=== PATIENT | female | born 1975 | race Caucasian/White ===

== ENCOUNTER 2021-10-13 17:08 | Outpatient (REF) | payer OTHER, SELFPAY | END 2021-10-13 17:09 | disposition home or self-care (01) | LOC: HO.LNP 17:08 | PROVIDERS: Visit Provider Nurse Practitioner Family | DX: R82.998 Other abnormal findings in urine (principal) | CPT/HCPCS: 87086 ==

== ENCOUNTER 2023-05-23 11:39 | Outpatient (AMB) | payer OTHER, SELFPAY ==
--- NOTE | 2023-05-23 11:43 | A.OFFPC_ITS ---
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 Father No problems noted. Social History Housing: House Alcohol intake: never Patient Tobacco Use Status: Never used Tobacco e-Cigarette/Vaping Use: Never Used Second Hand Smoke Exposure: No service: No Current occupational status: employed Current occupation: nurse Cognitive needs: No Hearing needs: No Vision needs: Yes (glasses) Questionnaire PHQ-9 Over the last 2 weeks, how often have you been bothered by any of the following problems? 1. Little interest or pleasure in doing things: not at all 2. Feeling down, depressed, or hopeless: not at all 3. Trouble falling or staying asleep, or sleeping too much: not at all 4. Feeling tired or having little energy: not at all 5. Poor appetite or overeating: not at all 6. Feeling bad about yourself - or that you are a failure or have let yourself or your family down: not at all 7. Trouble concentrating on things, such as reading the newspaper or watching television: not at all 8. Moving or speaking so slowly that other people could have noticed. Or the opposite - being so fidgety or restless that you have been moving around a lot more than usual: not at all 9. Thoughts that you would be better off or of hurting yourself in some way: not at all Total score: 0 Depression Screening Interpretation: Negative Depression Screening Done: Yes 04377 - PHQ-9 Billing: Yes Source: Developed by Drs. Julien Coles, Veda Aiken, Salomón Pelaez and colleagues, with an educational sandrita from [employer]. Thrive Questionnaire Date Thrive assessed: 05/23/23 I am a: Patient What is your living situation today?: I have a steady place to live Within the past 12 months, did the food you bought not last and you didn't have the money to get more?: Never true Within the past 12 months, did you worry whether your food would run out before you got money to buy more?: Never true Do you have trouble paying for medicines?: No Do you have trouble getting transportation to medical appointments?: No Do you have trouble paying your heating and electricity bill?: No Do you have trouble taking care of your child, family member or friend?: No Do you have trouble with day-to-day activities such as bathing, preparing meals, shopping, managing finances, etc.?: No Are you currently unemployed and looking for a job?: No Are you interested in more education?: No Please select the resources that you would like help with: None Currently or been in a relationship where the following occur: no concerns reported AUDIT C Alcohol Use Questionnaire (AUDIT-C) 1. How often do you have a drink containing alcohol?: Never 3. How often do you have six or more drinks on one occasion?: Never Total Score: 0 CASSANDRA-7 AMB Questionnaire CASSANDRA-7 Date CASSANDRA - 7 assessed: 05/23/23 Feeling nervous, anxious, or on edge: 0 = Not at all Not being able to stop or control worryin = Not at all Worrying too much about different things: 0 = Not at all Trouble relaxin = Not at all Being so restless that it is hard to sit still: 0 = Not at all Becoming easily annoyed or irritable: 0 = Not at all Feeling afraid as if something awful might happen: 0 = Not at all Total CASSANDRA-7 score (0-4 normal; 5-9 mild; 10-14 moderate; 15-21 severe): 0 Source: Developed by Drs. Julien Coles, Veda Aiken, Salomón Pelaez and colleagues, with an educational sandrita from [employer]. CASSANDRA-7 Assessment Billing CASSANDRA-7 Assessment Tool: CASSANDRA-7 Assessment 76868 Review of Systems Const Denies chills, Denies headache(s) and Denies weight loss ENT Denies headache(s) Card Denies chest pain, Denies syncope, Denies irregular heart rhythm and Denies dyspnea Resp Denies chest congestion, Denies cough and Denies dyspnea GI Denies abdominal pain, Denies change in stool character, Denies nausea and Denies vomiting Musc Denies deformity and Denies joint swelling Neuro Denies syncope and Denies headache(s) Physical exam (Primary Care) Vital Signs: Last Vital Signs Pulse 68 05/23/23 11:44 BP 104/68 05/23/23 11:44 Pulse Ox 98 05/23/23 11:44 Oxygen Delivery Method Room Air 05/23/23 11:44 BMI result Body Mass Index 24.1 Tobacco/Smoking Status: Tobacco use Status Tobacco use date assessed 10/13/21 05/23/23 11:51 Patient Tobacco Use Status Never used Tobacco 05/23/23 11:51 e-Cigarette/Vaping Use Never Used 05/23/23 11:51 PHQ-9: PHQ-9 Score PHQ-9: Total score 0 05/23/23 11:51 Depression Screening Interpretation: Negative Thrive Assessment: Date of Thrive Assessment Date Thrive assessed 05/23/23 05/23/23 11:51 Currently or been in a relationship where the following occur: no concerns reported Const General: cooperative, comfortable, no acute distress and alert Neck Neck: Yes no lymphadenopathy Thyroid: Thyroid normal Resp Effort & Inspection: normal respiratory effort Auscultation: clear to auscultation bilaterally Percussion: percussion normal Cardio Jugular venous distension: no JVD Palpation: normal PMI Rate: regular rate Rhythm: regular rhythm Heart sounds: S1 normal heart sound present and S2 normal heart sound present GI Inspection: Yes normal to inspection Palpation (GI): No hepatosplenomegaly present Skin General skin exam: no rashes or lesions noted Extrem General: Yes no clubbing, cyanosis or edema Assessment and Plan Assessment & Plan (1) 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
[2023-05-23 11:44] VITALS: BP 104/68; PULSE 68; O2SAT 98; BMI 24.1
== END 2023-05-23 12:53 | disposition home or self-care (01) ==
PROVIDERS: PCP Internal Medicine; Visit Provider Internal Medicine
DX: I45.6 Pre-excitation syndrome (principal)
CPT/HCPCS: 99213

== ENCOUNTER 2023-11-14 11:35 | Outpatient (AMB) | payer BC, SELFPAY ==
--- NOTE | 2023-11-14 11:36 | A.OFFPC_ITS ---
Vital Signs 11/14/23 11:37 Height 5 ft 7 in Weight 154 lb BMI 24.1 BP 140/76 H Blood Pressure Location Lt brachial Position Sitting Pulse 100 Pulse Source Pulse Oximeter Pulse Oximetry (%) 98 Oxygen Delivery Method Room Air Intake Visit Reasons: Med Visit Allergies No Known Allergies Allergy (Verified 11/14/23 11:38) Medication List - Last Reconciled 11/14/23 by Cliff Garg MD [id number] 50-325-40 mg 2 tabs PO Q4-6H PRN zolpidem 5 mg PO BEDTIME PRN Tobacco use date assessed: 11/14/23 Dental Screening Dental Screen Date: 11/14/23 HPI Med Visit HPI Details cough for a week PFSH Medical History (Updated 12/11/21 @ 09:27 by Cliff Garg MD) WPW syndrome Surgical History History of bladder surgery History of section Family History Mother No problems noted. Father No problems noted. Social History Housing: House Alcohol intake: never Patient Tobacco Use Status: Never used Tobacco e-Cigarette/Vaping Use: Never Used Second Hand Smoke Exposure: No service: No Current occupational status: employed Current occupation: nurse Cognitive needs: No Hearing needs: No Vision needs: Yes (glasses) Questionnaire PHQ-9 Over the last 2 weeks, how often have you been bothered by any of the following problems? 1. Little interest or pleasure in doing things: not at all 2. Feeling down, depressed, or hopeless: not at all 3. Trouble falling or staying asleep, or sleeping too much: not at all 4. Feeling tired or having little energy: not at all 5. Poor appetite or overeating: not at all 6. Feeling bad about yourself - or that you are a failure or have let yourself or your family down: not at all 7. Trouble concentrating on things, such as reading the newspaper or watching television: not at all 8. Moving or speaking so slowly that other people could have noticed. Or the opposite - being so fidgety or restless that you have been moving around a lot more than usual: not at all 9. Thoughts that you would be better off or of hurting yourself in some way: not at all Total score: 0 Depression Screening Interpretation: Negative Depression Screening Done: Yes [id number] - PHQ-9 Billing: Yes Source: Developed by Drs. Julien Coles, Veda Aiken, Salomón Pelaez and colleagues, with an educational sandrita from [employer]. Thrive Questionnaire Date Thrive assessed: 11/14/23 I am a: Patient What is your living situation today?: I have a steady place to live Within the past 12 months, did the food you bought not last and you didn't have the money to get more?: Never true Within the past 12 months, did you worry whether your food would run out before you got money to buy more?: Never true Do you have trouble paying for medicines?: No Do you have trouble getting transportation to medical appointments?: No Do you have trouble paying your heating and electricity bill?: No Do you have trouble taking care of your child, family member or friend?: No Do you have trouble with day-to-day activities such as bathing, preparing meals, shopping, managing finances, etc.?: No Are you currently unemployed and looking for a job?: No Are you interested in more education?: No Currently or been in a relationship where the following occur: no concerns reported THRIVE Score: 0 AUDIT C Alcohol Use Questionnaire (AUDIT-C) 1. How often do you have a drink containing alcohol?: Never 3. How often do you have six or more drinks on one occasion?: Never Total Score: 0 CASSANDRA-7 AMB Questionnaire CASSANDRA-7 Date CASSANDRA - 7 assessed: 11/14/23 Feeling nervous, anxious, or on edge: 0 = Not at all Not being able to stop or control worryin = Not at all Worrying too much about different things: 0 = Not at all Trouble relaxin = Not at all Being so restless that it is hard to sit still: 0 = Not at all Becoming easily annoyed or irritable: 0 = Not at all Feeling afraid as if something awful might happen: 0 = Not at all Total CASSANDRA-7 score (0-4 normal; 5-9 mild; 10-14 moderate; 15-21 severe): 0 Source: Developed by Drs. Julien Coles, Veda Aiken, Salomón Pelaez and colleagues, with an educational sandrita from [employer]. Review of Systems Const Denies chills, Denies headache(s) and Denies weight loss ENT Denies headache(s) Card Denies chest pain, Denies syncope, Denies irregular heart rhythm and Denies dyspnea Resp Denies dyspnea GI Denies abdominal pain, Denies change in stool character, Denies nausea and Denies vomiting Musc Denies deformity and Denies joint swelling Neuro Denies syncope and Denies headache(s) Physical exam (Primary Care) Vital Signs: Last Vital Signs Pulse 100 11/14/23 11:37 BP 140/76 H 11/14/23 11:37 Pulse Ox 98 11/14/23 11:37 Oxygen Delivery Method Room Air 11/14/23 11:37 BMI result Body Mass Index 24.1 Tobacco/Smoking Status: Tobacco use Status Tobacco use date assessed 11/14/23 11/14/23 11:36 Patient Tobacco Use Status Never used Tobacco 11/14/23 11:36 e-Cigarette/Vaping Use Never Used 11/14/23 11:36 PHQ-9: PHQ-9 Score PHQ-9: Total score 0 11/14/23 12:44 Depression Screening Interpretation: Negative Thrive Assessment: Date of Thrive Assessment Date Thrive assessed 11/14/23 11/14/23 11:36 Currently or been in a relationship where the following occur: no concerns r eported Const General: cooperative, comfortable, no acute distress and alert Neck Neck: Yes no lymphadenopathy Thyroid: Thyroid normal Resp Effort & Inspection: normal respiratory effort Auscultation: clear to auscultation bilaterally Percussion: percussion normal Cardio Jugular venous distension: no JVD Palpation: normal PMI Rate: regular rate Rhythm: regular rhythm Heart sounds: S1 normal heart sound present and S2 normal heart sound present GI Inspection: Yes normal to inspection Palpation (GI): No hepatosplenomegaly present Skin General skin exam: no rashes or lesions noted Extrem General: Yes no clubbing, cyanosis or edema Assessment and Plan Assessment & Plan (1) Cough: Code(s): R05.9 - Cough, unspecified Plan: rx sent Medications: New benzonatate 100 mg PO TID PRN 60 caps 0RF cough amoxicillin-pot clavulanate 500-125 mg (Augmentin) 1 tab PO BID 10 tabs 0RF Coding Level of Care Code Est Pt Level 3 (84628) Diagnoses Cough R05.9
[2023-11-14 11:37] VITALS: BP 140/76; PULSE 100; O2SAT 98; BMI 24.1
== END 2023-11-14 11:59 | disposition home or self-care (01) ==
PROVIDERS: PCP Internal Medicine; Visit Provider Internal Medicine
DX: R05.9 Cough, unspecified (principal)
CPT/HCPCS: 99213

== ENCOUNTER 2024-01-16 12:54 | Outpatient (AMB) | payer BC, SELFPAY ==
[2024-01-16 12:55] VITALS: BP 110/74; PULSE 72; O2SAT 98; BMI 24.7
--- NOTE | 2024-01-16 12:55 | MHC.PC.OV ---
Vital Signs 01/16/24 12:55 Height 5 ft 7 in Weight 157 lb 13.616 oz BMI 24.7 BP 110/74 Blood Pressure Location Lt brachial Position Sitting Pulse 72 Pulse Source Pulse Oximeter Pulse Oximetry (%) 98 Oxygen Delivery Method Room Air Intake Visit Reasons: Annual Exam Nutrition Aides Teacher Required: No Lead Radiation Therapist: Not Required per policy Accompanied by: Self / Same As Patient Allergies No Known Allergies Allergy (Verified 01/16/24 12:56) Tobacco use date assessed: 11/14/23 Dental Screening Dental Screen Date: 11/14/23 HPI Annual Exam HPI Details healthy [facility] Medical History (Updated 12/11/21 @ 09:27 by Cliff Garg MD) WPW syndrome Surgical History History of bladder surgery History of section Family History Mother No problems noted. Father No problems noted. Social History Housing: House Alcohol intake: never Patient Tobacco Use Status: Never used Tobacco e-Cigarette/Vaping Use: Never Used Second Hand Smoke Exposure: No service: No Current occupational status: employed Current occupation: nurse Cognitive needs: No Hearing needs: No Vision needs: Yes (glasses) Questionnaire Thrive Questionnaire Date Thrive assessed: 11/14/23 CASSANDRA-7 AMB Questionnaire CASSANDRA-7 Date CASSANDRA - 7 assessed: 11/14/23 Source: Developed by Drs. Julien Coles, Veda Aiken, Salomón Pelaez and colleagues, with an educational sandrita from [employer]. Review of Systems Const Denies chills, Denies fatigue, Denies headache(s) and Denies weight loss Eyes Denies change in vision, Denies diplopia and Denies eye pain ENT Denies vertigo, Denies dizziness, Denies headache(s) and Denies nasal discharge Card Denies chest pain, Denies rapid heart rate and Denies dyspnea on exertion Resp Denies chest congestion, Denies cough, Denies pain with cough and Denies dyspnea on exertion GI Denies abdominal pain, Denies hematochezia and Denies change in bowel habits Musc Denies myalgias, Denies arthralgias and Denies joint swelling Skin/Breast Denies lesions and Denies unusual bruising Neuro Denies vertigo, Denies dizziness, Denies headache(s) and Denies focal weakness Endo Denies fatigue Physical exam (Primary Care) Vital Signs: Last Vital Signs Pulse 72 01/16/24 12:55 BP 110/74 01/16/24 12:55 Pulse Ox 98 01/16/24 12:55 Oxygen Delivery Method Room Air 01/16/24 12:55 BMI result Body Mass Index 24.7 Tobacco/Smoking Status: Tobacco use Status Tobacco use date assessed 11/14/23 01/16/24 12:57 Patient Tobacco Use Status Never used Tobacco 01/16/24 12:57 e-Cigarette/Vaping Use Never Used 01/16/24 12:57 Thrive Assessment: Date of Thrive Assessment Date Thrive assessed 11/14/23 01/16/24 12:57 Const General: cooperative, healthy appearing and no acute distress Orientation/consciousness: oriented to person, oriented to place and oriented to time HENMT Head: Yes normal to inspection, Yes normocephalic and Yes atraumatic Mouth: Normal oral and palatal mucosa present and tongue normal Throat: Yes posterior oropharynx normal and Yes uvula midline Eyes General: appearance normal, both eyes and all related structures Neck Neck: Yes normal visual inspection, Yes full ROM and Yes no lymphadenopathy Thyroid: Thyroid normal Carotids: normal carotid upstroke Chest Chest palpation & inspection: normal inspection of the chest Resp Effort & Inspection: normal respiratory effort and able to speak in complete sentences Auscultation: clear to auscultation bilaterally Cardio Jugular venous distension: no JVD Palpation: normal PMI Rate: regular rate Rhythm: regular rhythm Heart sounds: S1 normal heart sound present and S2 normal heart sound present GI Inspection: Yes normal to inspection Palpation (GI): Soft to palpation and No hepatosplenomegaly present Auscultation: normal bowel sounds General: Yes no CVA tenderness Back/Spine/Pelvis Back: no CVA tenderness Skin General skin exam: no rashes or lesions noted Neuro General: oriented to person, oriented to place and oriented to time Extrem General: Yes normal to inspection and Yes full ROM Assessment and Plan Assessment & Plan (1) Physical exam: Code(s): Z00.00 - Encounter for general adult medical examination without abnormal findings Plan: stable; do labs Orders: Orders Lipid Panel Today Z13.220 - Encounter for screening for lipoid disorders Thyroid Stimulating Hormone Today Z13.29 - Encounter for screening for other suspected endocrine disorder Comprehensive Luther. Panel Fast Today Z13.9 - Encounter for screening, unspecified Complete Blood Count Auto Diff Today Z13.0 - Encounter for screening for diseases of the blood and blood-forming organs and certain disorders involving the immune mechanism Coding Level of Care Code Est Pt Prev Care 40-64y(15258) Diagnoses Physical exam Z00.00
== END 2024-01-16 13:15 | disposition home or self-care (01) ==
PROVIDERS: PCP Internal Medicine; Visit Provider Internal Medicine
DX: Z00.00 Encounter for general adult medical examination without abnormal findings (principal)
CPT/HCPCS: 99396

== ENCOUNTER 2025-01-19 13:53 | Outpatient (AMB) | payer BC, SELFPAY ==
[2025-01-19 13:54] VITALS: BP 124/82; PULSE 81; RESP 18; TEMP 36.2; O2SAT 97; BMI 24.0
--- NOTE | 2025-01-19 13:54 | A.OFFPC_ITS ---
Vital Signs 01/19/25 13:54 Height 5 ft 7 in Weight 153 lb 8 oz BMI 24.0 BP 124/82 Blood Pressure Location Lt brachial Position Sitting Respiration 18 Pulse 81 Pulse Source Pulse Oximeter Temp 97.1 F Temp Source Temporal Artery Scan Pulse Oximetry (%) 97 Oxygen Delivery Method Room Air Intake Visit Reasons: ML Dr. Garg/annual exam Allergies No Known Allergies Allergy (Verified 01/19/25 14:03) Medication List - Last Reconciled 01/19/25 by HAMILTON Palacios benzonatate 100 mg PO TID PRN qonzkziaow-xgglersegrzqe-toyl 50-325-40 mg 2 tabs PO Q4-6H PRN estradiol 2 mg PO DAILY estradiol (Yuvafem) 10 mcg vaginal 2XW progesterone micronized 100 mg PO DAILY zolpidem 5 mg PO BEDTIME PRN Tobacco use date assessed: 01/19/25 Dental Screening Dental Screen Date: 01/19/25 Did you have a dental visit in the last 12 months?: Yes Did you have a dental problem in the last 6 months where you did not have access to dental care?: No Was dental information given to patient?: Patient has dentist HPI ML Dr. Garg/annual exam HPI Details Patient did presenting for annual physical and transition of care from Dr. Garg who retired Dentist: up to date Eye: up to date, months ago, thinking about scheduling for lasiks procedure but she is not sure about this as yet Snellen: Right: Left: Corrected vision: yes STI screening: Colonoscopy: 08/2024, view polyps precancerous-recommend repeat in 2 years. Pap Smer:07/2024 mammagrom: 2023 and it was normal PHQ-9:0 Flu:allergy to the flu vaccines about 5 fives COVID: never had a covid vaccines Shingles: x2 recent Tdap: up to date Diet: regular diet Exercise: biking, skiing, and using the treadmill The patient is a 49-year-old female presenting for a wellness visit and management of chronic conditions. The patient reports a history of migraines, which are exacerbated by fatigue and prolonged work hours. She manages these with ibuprofen and Excedrin, although excessive use has led to gastritis in the past. She has presbyopia and has been using contact lenses for over 20 years, but recently experienced dryness and discomfort. She is considering corrective surgery but is cautious about the potential outcomes. The patient has a history of hyperlipidemia, with recent lab results showing elevated LDL cholesterol at 136 mg/dL. She is advised to modify her diet to reduce cholesterol intake. She underwent a colonoscopy in August, which revealed multiple polyps that were removed and identified as precancerous. Her father had a history of colon cancer, necessitating regular surveillance. The patient experiences premature ventricular contractions and has been evaluated by a portable track crew chief. She has been prescribed nitroglycerin for episodes of chest discomfort. 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 PFSH Medical History WPW syndrome Surgical History History of bladder surgery History of section Family History Mother No problems noted. Father No problems noted. Social History Housing: House Alcohol intake: never Patient Tobacco Use Status: Never used Tobacco e-Cigarette/Vaping Use: Never Used Second Hand Smoke Exposure: No service: No Current occupational status: employed Current occupation: nurse Cognitive needs: No Hearing needs: No Vision needs: Yes (glasses) Questionnaire PHQ-9 Over the last 2 weeks, how often have you been bothered by any of the following problems? 1. Little interest or pleasure in doing things: not at all 2. Feeling down, depressed, or hopeless: not at all 3. Trouble falling or staying asleep, or sleeping too much: not at all 4. Feeling tired or having little energy: not at all 5. Poor appetite or overeating: not at all 6. Feeling bad about yourself - or that you are a failure or have let yourself or your family down: not at all 7. Trouble concentrating on things, such as reading the newspaper or watching television: not at all 8. Moving or speaking so slowly that other people could have noticed. Or the opposite - being so fidgety or restless that you have been moving around a lot more than usual: not at all 9. Thoughts that you would be better off or of hurting yourself in some way: not at all Total score: 0 Depression Screening Interpretation: Negative Depression Screening Done: Yes 82754 - PHQ-9 Billing: Yes Source: Developed by Drs. Julien Coles, Veda Aiken, Salomón Pelaez and colleagues, with an educational sandrita from [employer]. Thrive Questionnaire Date Thrive assessed: 01/19/25 I am a: Patient What is your living situation today?: I have a steady place to live Within the past 12 months, did the food you bought not last and you didn't have the money to get more?: Never true Within the past 12 months, did you worry whether your food would run out before you got money to buy more?: Never true Do you have trouble paying for medicines?: No Do you have trouble getting transportation to medical appointments?: No Do you have trouble paying your heating and electricity bill?: No Do you have trouble taking care of your child, family member or friend?: No Do you have trouble with day-to-day activities such as bathing, preparing meals, shopping, managing finances, etc.?: No Are you currently unemployed and looking for a job?: No Are you interested in more education?: No THRIVE Score: 0 AUDIT C Alcohol Use Questionnaire (AUDIT-C) 1. How often do you have a drink containing alcohol?: Never 3. How often do you have six or more drinks on one occasion?: Never Total Score: 0 CASSANDRA-7 AMB Questionnaire CASSANDRA-7 Date CASSANDRA - 7 assessed: 01/19/25 Feeling nervous, anxious, or on edge: 0 = Not at all Not being able to stop or control worryin = Not at all Worrying too much about different things: 0 = Not at all Trouble relaxin = Not at all Being so restless that it is hard to sit still: 0 = Not at all Becoming easily annoyed or irritable: 0 = Not at all Feeling afraid as if something awful might happen: 0 = Not at all Total CASSANDRA-7 score (0-4 normal; 5-9 mild; 10-14 moderate; 15-21 severe): 0 Source: Developed by Veda Neely Attila, Salomón Pelaez and colleagues, with an educational sandrita from [employer]. CASSANDRA-7 Assessment Billing CASSANDRA-7 Assessment Tool: CASSANDRA-7 Assessment 21818 Review of Systems Const Reports fatigue (exacerbated by migraines) and Reports headache(s) (chronic migraines) Eyes Reports change in vision, Reports dry eyes (and discomfort) and Denies loss of vision ENT Denies vertigo, Denies dizziness, Reports headache(s) (chronic migraines), Reports mouth lesions (recurrent cold sores) and Denies sore throat Card Reports chest pain (recurrent chest discomfort and palpitations), Denies leg edema and Denies lightheadedness Resp Denies cough, Denies hemoptysis and Denies wheezing GI Denies abdominal pain, Denies melena, Reports constipation (occasional), Denies diarrhea and Denies vomiting Denies urinary frequency, Denies dysuria and Denies urinary urgency Musc Denies arthralgias, Denies joint swelling, Denies numbness and Denies tingling Neuro Denies Abnormal speech present, Denies behavioral changes, Denies vertigo, Denies dizziness, Reports headache(s) (chronic migraines), Denies loss of vision, Denies memory loss, Denies numbness and Denies tingling Psych Denies anxiety, Denies behavioral changes, Denies depression, Denies memory loss and Denies panic attacks Endo Reports fatigue (exacerbated by migraines) Otilio/Lymph Denies easy bleeding and Denies easy bruising Aller/Immun Denies wheezing Physical exam (Primary Care) Vital Signs: Last Vital Signs Temp 97.1 F 01/19/25 13:54 Pulse 81 01/19/25 13:54 Resp 18 01/19/25 13:54 BP 124/82 01/19/25 13:54 Pulse Ox 97 01/19/25 13:54 Oxygen Delivery Method Room Air 01/19/25 13:54 BMI result Body Mass Index 24.0 Tobacco/Smoking Status: Tobacco use Status Tobacco use date assessed 01/19/25 01/19/25 14:01 Patient Tobacco Use Status Never used Tobacco 01/19/25 14:01 e-Cigarette/Vaping Use Never Used 01/19/25 14:01 PHQ-9: PHQ-9 Score PHQ-9: Total score 0 02/07/25 22:52 Depression Screening Interpretation: Negative Thrive Assessment: Date of Thrive Assessment Date Thrive assessed 01/19/25 01/19/25 14:01 Const General: healthy appearing, no acute distress, alert and awake Nutritional Appearance: well nourished Orientation/consciousness: oriented to person, oriented to place and oriented to time HENMT Ears: TM's normal bilaterally General nose exam: Normal nasal mucous membranes and turbinates present Eyes Conjunctivae: conjunctivae normal Sclerae: sclerae normal Pupils: Equal, round and reactive pupils present Neck Neck: Yes no lymphadenopathy and Yes no JVD Thyroid: Thyroid normal Carotids: no bruits Resp Effort & Inspection: normal respiratory effort and not tachypneic Auscultation: no crackles, no rales, no rhonchi and no wheezes Cardio Rate: regular rate Rhythm: regular rhythm Heart sounds: no murmurs and normal S1 and S2 GI Palpation (GI): Soft to palpation, nontender, no hepatomegaly and no splenomegaly Auscultation: normal bowel sounds Skin General skin exam: no rashes or lesions noted and dry skin Neuro General: oriented to person, oriented to place and oriented to time Cranial nerves: Yes Equal, round and reactive pupils present Speech: No Abnormal speech present Gait exam (Neuro): Normal gait present Motor exam (neuro): no tremor noted Deep tendon reflexes (DTR's): Right triceps reflex intensity grade: 2+, Left triceps reflex intensity grade: 2+, Rt Biceps (C5, C6): 2+, Left biceps reflex intensity grade: 2+, Right brachioradialis reflex intensity grade: 2+, Left brachioradialis reflex intensity grade: 2+, Right patellar reflex intensity grade: 2+ and Left patellar reflex intensity grade: 2+ Extrem Right upper extremity: full ROM Left upper extremity: full ROM Right lower extremity: full ROM; no edema Left lower extremity: full ROM; no edema Psych Mental Status: mental status grossly normal Speech and movement: Normal speech and movement present Affect: normal affect Attitude: cooperative Thought process: Normal thought process present Coding Level of Care Code Est Pt Prev Care 40-64y([id number]) Diagnoses Physical exam Z00.00 WPW syndrome I45.6 Recurrent cold sores B00.1 Pure hypercholesterolemia E78.00 Hyperlipidemia type: pure hypercholesterolemia Other insomnia G47.09 Insomnia type: other insomnia Additional Codes CASSANDRA-7 Assessment Billing - CASSANDRA-7 Assessment Tool: CASSANDRA-7 Assessment 04197 ([id number]) PHQ-9 - 28728 - PHQ-9 Billing: Yes ([id number]) Time Spent (min) 36 Assessment & Plan Assessment & Plan (1) Physical exam: Code(s): Z00.00 - Encounter for general adult medical examination without abnormal findings Category: Medical Plan: No recent labs reviewed. Patient last labs was February of 2024 which was reviewed with the patient. We will order follow up labs for the patient to complete. Preventative guidelines reviewed with the patient. Patient had a Pap smear in July 2024 and her last mammogram was 2023 which was normal. She had a colonoscopy in August 2024 that showed precancerous polyps plus she has a family history, so the patient we will be repeating her colonoscopy in 2 years. The patient had shingles vaccines x2 she is up-to-date on her Tdap. She is allergic to the flu vaccine. Overall the patient is up-to-date on her preventive measures. (2) WPW syndrome: Code(s): I45.6 - Pre-excitation syndrome Category: Medical Plan: Patient has a history of recurrent chest discomfort and heart palpitation. Reports that she was ordered nitroglycerin for this but she has not had an issue in a while (3) Recurrent cold sores: Code(s): B00.1 - Herpesviral vesicular dermatitis Category: Medical Plan: Reports recurrent cold sores with stress-acyclovir 5% 1 appl topical 6 times a day x7 days refilled (4) HLD (hyperlipidemia): Code(s): E78.5 - Hyperlipidemia, unspecified Category: Medical Qualifiers: Hyperlipidemia type: pure hypercholesterolemia Qualified Code(s): E78.00 - Pure hypercholesterolemia, unspecified Plan: Triglycerides 82, Total cholesterol 222, LDL 136, HDL 70, 02/2024 Discussed lifestyle modifications including dietary changes and physical activity Lipids order, we will advise (5) Insomnia: Code(s): G47.00 - Insomnia, unspecified Category: Medical Qualifiers: Insomnia type: other insomnia Qualified Code(s): G47.09 - Other insomnia Plan: Reinforced sleep hygiene Continue zolpidem 5 mg at bedtime p.r.n. Orders: Orders UA CC w/rflx Micro + Cult 01/19/25 I45.6 - Pre-excitation syndrome, R11.0 - Nausea, R10.11 - Right upper quadrant pain, Z00.00 - Encounter for general adult medical examination without abnormal findings Vitamin D 25-OH Total 01/19/25 I45.6 - Pre-excitation syndrome, R11.0 - Nausea, R10.11 - Right upper quadrant pain, Z00.00 - Encounter for general adult medical examination without abnormal findings Comprehensive Lacey. Panel Fast 01/19/25 I45.6 - Pre-excitation syndrome, R11.0 - Nausea, R10.11 - Right upper quadrant pain, Z00.00 - Encounter for general adult medical examination without abnormal findings Complete Blood Count Auto Diff 01/19/25 I45.6 - Pre-excitation syndrome, R11.0 - Nausea, R10.11 - Right upper quadrant pain, Z00.00 - Encounter for general adult medical examination without abnormal findings Lipid Panel 01/19/25 I45.6 - Pre-excitation syndrome, R11.0 - Nausea, R10.11 - Right upper quadrant pain, Z00.00 - Encounter for general adult medical examination without abnormal findings TSH reflex Free T4 01/19/25 I45.6 - Pre-excitation syndrome, R11.0 - Nausea, R10.11 - Right upper quadrant pain, Z00.00 - Encounter for general adult medical examination without abnormal findings Medications: New acyclovir 5% 1 appl topical 6XD 30 grams 3RF 7 days
--- OUTSIDE RECORDS SUMMARY | 2025-01-19 15:04 | XMS_ITS | Clinical Summary ---
Author Organization [facility] [address] [facility] Address [address] [place] [address] Phone Care Team Providers Care Animal Nutritionist Name Role Phone Cliff Fisher MD Primary Care Provider Allergies No known active allergies Medications estradiol-noret hindrone (ACTIVELLA) 1-0.5 mg per tablet Take 1 tablet by mouth 1 (one) time each day. 06/27/2024 Active progesterone (PROMETRIUM) 100 mg capsule Take 1 capsule (100 mg total) by mouth 1 (one) time each day. 07/30/2024 Active estradioL (ESTRACE) 2 mg tablet Take 1 tablet (2 mg total) by mouth 1 (one) time each day. 07/30/2024 Active Encounters Date Type Department Care Team Description 11/16/2024 Telephone [facility] [address] [place] [address] Concetta Sampson CNM from Last 3 Months Surgical History Surgery Date Site/Laterality Comments SECTION PROCEDURE: NM DELIVERY ONLY COLONOSCOPY 2014 PROCEDURE: HISTORICAL COLONOSCOPY; COMMENT: due to anemia ESOPHAGOGASTRODUODENOSCOPY 2014 PROCEDURE: NM ESOPHAGOGASTRODUODENOSCOPY TRANSORAL DIAGNOSTIC; COMMENT: Dr. Davison, h pylori x 2 BLADDER SUSPENSION Medical History Medical History Date Comments Insomnia DX:Insomnia Chronic headaches DX:Chronic hea daches Chronic right shoulder pain DX:C hronic right shoulder pain ALFREDO (iron deficiency anemia) DX: ALFREDO (iron deficiency anemia); COMMENT: has IUD now H pylori ulcer DX:H pylori ulce r; COMMENT: x 2 Family History Medical History Relation Name Comments Ulcerative colitis Brother Heart attack Father x5 Hyperlipidemia Father Hypertension Father Other: stent Father Diabetes Maternal Grandfather Breast cancer Maternal Grandmother Arthritis Mother Coronary artery disease Mother Hyperlipidemia Mother Hypertension Mother No Known Problems Sister 1 No Known Problems Sister 2 No Known Problems Sister 3 No Known Problems Sister 4 No Known Problems Sister 5 Relation Name Status Comments Brother Alive Father Alive Maternal Grandfather Maternal Grandmother Mother Alive Paternal Grandfather Paternal Grandmother Sister 1 Alive Sister 2 Alive Sister 3 Alive Sister 4 Alive Sister 5 Alive Social History Tobacco Use Types Packs/Day Years Used Date Smoking Tobacco: Never Smokeless Tobacco: Never Alcohol Use Standard Drinks/Week Comments No 0 (1 standard drink = 0.6 oz pur e alcohol) Comments Unknown Sex and Gender Information Value Date Recorded Sex Assigned at Female 08/27/2024 12:57 PM EST Legal Sex Female 8:27 PM EST Gender Identity Female 08/27/2024 12:57 PM EST Sexual Orientation Straight 08/27/2024 12 :57 PM EST Obstetrics History Last Filed Vital Signs Vital Sign Reading Time Taken Comments Blood Pressure 128/93 09/29/2024 3:15 AM EDT Pulse 69 09/29/2024 3:15 AM EDT Temperature 36.2 C (97.2 F) 09/29/2024 3:15 AM EDT Respiratory Rate 16 09/29/2024 3:15 AM EDT Oxygen Saturation 100% 09/29/2024 3:15 AM EDT Inhaled Oxygen Concentration - - Weight 65.8 kg (145 lb) 09/28/2024 10:18 PM EDT Height 170.2 cm (5' 7 ) 09/28/2024 10:18 PM EDT Body Mass Index 22.71 09/28/2024 10:18 PM EDT Plan of Treatment Health Maintenance Due Date Last Done Comments DTaP,Tdap,and Td Vaccines (1 - Tdap) 1992 Hepatitis B Vaccines (1 of 3 - 19+ 3-dose series) 1992 Cervical Cancer Screening: P ap Smear 1994 Depression Screening 06/30/2022 HIV Screening 06/30/2022 Hepatitis C Screening 06/30/2022 Social Influencers of Health Screening 06/30/2022 Pneumococcal Vaccine: 50+ Years (1 of 1 - PCV) 12/30/2023 COVID-19 Vaccine (1 - 2023-2 5 season) 2024 Zoster Vaccines (2 of 2) 10/26/2024 08/31/2024 Influenza Vaccine (#1) 2025 Breast Cancer Screening 03/11/2026 03/11/20 24, 12/23/2020, 01/10/2018 Colorectal Cancer Screening: Colonoscopy 08/27/2034 08/27/2024 HIB Vaccines Aged Out No longer eligi ble based on patient's age to complete this topic HPV Vaccines Aged Out No longer eligi ble based on patient's age to complete this topic Hepatitis A Vaccines Aged Out No long er eligible based on patient's age to complete this topic IPV Vaccines Aged Out No longer eligi ble based on patient's age to complete this topic MMR Vaccines Aged Out No longer eligi ble based on patient's age to complete this topic Meningococcal ACWY Vaccine Aged Out N o longer eligible based on patient's age to complete this topic Meningococcal B Vaccine Aged Out No l onger eligible based on patient's age to complete this topic Pneumococcal Vaccine: Pediatrics (0 to 5 Years) and At-Risk Patients (6 to 64 Years) Aged Out No longer eligible b ased on patient's age to complete this topic RSV Immunization Patients Under 20 months Aged Out No longer eligible b ased on patient's age to complete this topic Varicella Vaccines Aged Out No longer eligible based on patient's age to complete this topic Procedures Procedure Name Priority Date/Time Associated Diagnosis Comments COLONOSCOPY Routine 08/27/2024 10:08 AM EST Family history of colonic polyps Family history of colon cancer BHARATH SCREENING DIGITAL Routine 03/11/2024 4:41 PM EDT Encounter for screening mammogram for malignant neoplasm of breast from Last 3 Months or Most Recently Relevant to Health Maintenance Results * COLONOSCOPY Anesthesia - MAC; [facility] ENDOSCOPY (08/27/2024 10:08 AM EST) Anatomical Region Laterality Modality Endoscopy 08/27/2024 9:45 AM EST Impressions 08/27/2024 10:09 AM EST - Six 2 to 3 mm polyps in the descending colon and in the transverse colon, removed with a jumbo cold forceps. Resected and retrieved. - The examination was otherwise normal on direct and retroflexion views. Recommendation: - Patient has a contact number available for emergencies. The signs and symptoms of potential delayed complications were discussed with the patient. Return to normal activities tomorrow. Written discharge instructions were provided to the patient. - Resume previous diet. - Continue present medications. - Await pathology results. - Repeat colonoscopy in 3 - 5 years for surveillance. Narrative 08/27/2024 10:09 AM EST [facility] Patient Name: Solomon Kern Procedure Date: 08/27/2024 9:45 AM Date of : 1975 Age: 48 Gender: Female Note Status: Finalized Attending MD: Roberto Davison MD, Procedure Date No Time: 08/27/2024 Procedure: Colonoscopy Indications: Screening for colorectal malignant neoplasm Providers: Roberto Davison MD Referring MD: Roberto Davison MD Medicines: Monitored Anesthesia Care Complications: No immediate complications. Estimated Blood Loss: Estimated blood loss: none. Procedure: After I obtained informed consent, the scope was passed under direct vision. Throughout the procedure, the patient's blood pressure, pulse, and oxygen saturations were monitored continuously. The Colonoscope was introduced through the anus and advanced to the cecum, identified by appendiceal orifice and ileocecal valve. The colonoscopy was performed without difficulty. The patient tolerated the procedure well. The quality of the bowel preparation was good. Findings: Six sessile polyps were found in the descending colon and transverse colon. The polyps were 2 to 3 mm in size. These polyps were removed with a jumbo cold forceps. Resection and retrieval were complete. The exam was otherwise without abnormality on direct and retroflexion views. Procedure Code(s): --- Professional --- 69193, Colonoscopy, flexible; with biopsy, single or multiple Diagnosis Code(s): --- Professional --- Z12.11, Encounter for screening for malignant neoplasm of colon D12.4, Benign neoplasm of descending colon D12.3, Benign neoplasm of transverse colon (hepatic flexure or splenic flexure) CPT copyright 2020 [employer]. All rights reserved. The codes documented in this report are preliminary and upon statistical financial analyst review may be revised to meet current compliance requirements. MD Roberto Perkins MD 08/27/2024 10:08:43 AM This report has been signed electronically.Roberto Davison MD Number of Addenda: 0 Note Initiated On: 08/27/2024 9:45 AM Scope In: Scope Out: Endoscopy Department at [facility] - [address] [place] [id number] Procedure Note Roberto Davison MD - 08/27/2024 [facility] Patient Name: Solomon Kern Procedure Date: 08/27/2024 9:45 AM Date of : 1975 Age: 48 Gender: Female Note Status: Finalized Attending MD: Roberto Davison MD, Procedure Date No Time: 08/27/2024 Procedure: Colonoscopy Indications: Screening for colorectal malignant neoplasm Providers: Roberto Davison MD Referring MD: Roberto Davison MD Medicines: Monitored Anesthesia Care Complications: No immediate complications. Estimated Blood Loss: Estimated blood loss: none. Procedure: After I obtained informed consent, the scope was passed under direct vision. Throughout theprocedure, the patient's blood pressure, pulse, and oxygen saturations were monitored continuously. The Colonoscope was introduced through the anus and advanced to the cecum, identified by appendiceal orifice and ileocecal valve. The colonoscopy was performed without difficulty. The patient tolerated the procedure well. The quality of the bowel preparation was good. Findings: Six sessile polyps were found in the descendingcolon and transverse colon. The polyps were 2 to 3 mm in size. These polyps were removed with a jumbo cold forceps. Resection and retrieval were complete. The exam was otherwise without abnormality ondirect and retroflexion views. Procedure Code(s): --- Professional --- 51483, Colonoscopy, flexible; with biopsy, singleor multiple Diagnosis Code(s): --- Professional --- Z12.11, Encounter for screening for malignantneoplasm of colon D12.4, Benign neoplasm of descending colon D12.3, Benign neoplasm of transverse colon (hepatic flexure or splenic flexure) CPT copyright 2020 [employer]. All rights reserved. The codes documented in this report are preliminary and upon statistical financial analyst reviewmay be revised to meet current compliance requirements. MD Roberto Perkins MD 08/27/2024 10:08:43 AM This report has been signed electronically.Roberto Davison MD Number of Addenda: 0 Note Initiated On: 08/27/2024 9:45 AM Scope In: Scope Out: Endoscopy Department at [facility] - [address] [place] [id number] IMPRESSION: - Six 2 to 3 mm polyps in the descending colon and in the transverse colon, removed with a jumbo cold forceps. Resected and retrieved. - The examination was otherwise normal on directand retroflexion views. Recommendation: - Patient has a contact number available for emergencies. The signs and symptoms of potential delayed complications were discussed with thepatient. Return to normal activities tomorrow. Written discharge instructions were provided to thepatient. - Resume previous diet. - Continue present medications. - Await pathology results. - Repeat colonoscopy in 3 - 5 years forsurveillance. us Roberto Davison MD GI~PROCEDURE ORDERABLES Final R esult * BHARATH SCREENING DIGITAL (03/11/2024 4:41 PM EDT) Anatomical Region Laterality Modality Mammography 03/11/2024 10:1 6 AM EDT Narrative 03/11/2024 4:[address] [facility] Diagnostic Imaging Department [address] [place] [id number] Patient: ALBERTO KERNMarcio HeckB./Age/Sex: 1975 - 48 - F Unit#: [id number] Location/Status: SPDIMAM/REG CLI Mnemonic/Ordering Site: [facility] Ordering Physician: CLIFF FISHER MD [facility] Screening Digital - 03/11/24 - 1109 Report Status:Signed EXAM: [facility] Screening Digital EXAM DATE AND TIME: 03/11/2024 11:10 AM HISTORY: Screening. COMPARISON: 12/22/20, 01/10/18, 07/06/15 TECHNIQUE: Bilateral digital breast tomosynthesis was performed in the CC and MLO projections. Computer aided detection with [employer] 3D 3.1 was employed. TISSUE DENSITY: b. There are scattered areas of fibroglandular density. FINDINGS: No suspicious masses, grouped microcalcifications, or areas of architectural distortion are seen. The skin and vascularity are unremarkable. IMPRESSION: Stable mammographic appearance of the breasts. No evidence of malignancy is seen. A negative mammogram in the presence of a clinically suspicious palpable abnormality does not preclude the possibility of malignancy or alter the indications for biopsy. BI-RADS: Category 1: Negative RECOMMENDATION(S): 1: Routine screening mammogram BILATERAL in 1 year. Dictating Physician: MEME SANTOS MD Electronically Signed by: MEME SANTOS MD Dic Date/Time: 03/11/24 1641 Sign date/Time: 03/11/24 1641 Procedure Note Meme Santos MD - 05/06/2024 [facility] Diagnostic Imaging Department [address] [place] [address] Patient: SOLOMON KERN/Age/Sex: 1975 - 48 - F Unit#: [id number] Location/Status: SPDIMAM/REG CLI Mnemonic/Ordering Site: [facility] Ordering Physician: CLIFF FISHER MD [facility] Screening Digital - 03/11/24 - 1109 Report Status:Signed EXAM: [facility] Screening Digital EXAM DATE AND TIME: 03/11/2024 11:10 AM HISTORY: Screening. COMPARISON: 12/22/20, 01/10/18, 07/06/15 TECHNIQUE: Bilateral digital breast tomosynthesis was performed in the CCand MLO projections. Computer aided detection with Cum[employer] 3D 3.1was employed. TISSUE DENSITY: b. There are scattered areas of fibroglandular density. FINDINGS: No suspicious masses, grouped microcalcifications, or areas ofarchitectural distortion are seen. The skin and vascularity are unremarkable. IMPRESSION: Stable mammographic appearance of the breasts. No evidence of malignancyis seen. A negative mammogram in the presence of a clinically suspicious palpable abnormality does not preclude the possibility of malignancy or alter the indications for biopsy. BI-RADS: Category 1: Negative RECOMMENDATION(S): 1: Routine screening mammogram BILATERAL in 1 year. Dictating Physician: MEME SANTOS MD Electronically Signed by: MEME SANTOS MD Dic Date/Time: 03/11/24 1641 Sign date/Time: 03/11/24 1641 Cliff Fisher MD IMG BI PROCEDURES Final Result from Last 3 Months or Most Recently Relevant to Health Maintenance Insurance [facility] Care Teams Animal Nutritionist Relationship Specialty Start Date End Date Cliff Fisher MD [address] [place], [place] [id number] PCP - General Internal Medicine 07/23/24
== END 2025-01-19 14:53 | disposition home or self-care (01) ==
LOC: HO.HMCH 13:53
PROVIDERS: PCP Internal Medicine
DX: Z00.00 Encounter for general adult medical examination without abnormal findings (principal); I45.6 Pre-excitation syndrome; B00.1 Herpesviral vesicular dermatitis; E78.00 Pure hypercholesterolemia, unspecified; G47.09 Other insomnia

== ENCOUNTER → 2025-01-19 13:53 | Outpatient (BNVA) | payer BC, SELFPAY | PROVIDERS: PCP Internal Medicine | DX: Z00.00 Encounter for general adult medical examination without abnormal findings (principal); I45.6 Pre-excitation syndrome; B00.1 Herpesviral vesicular dermatitis; E78.00 Pure hypercholesterolemia, unspecified; G47.09 Other insomnia | CPT/HCPCS: 96127 ==